=== PATIENT | female | born 1985 | race African-American/Black ===

== ENCOUNTER 2018-02-13 01:13 | Emergency (ER) | payer MEDICAID, OTHER ==
[2018-02-13] MEDS: DIPHTH/TET/ACEL PERTUSS (ADULT) 0.5 ML VIAL IM* (04:12)
== END 2018-02-13 04:15 | disposition home or self-care (01) ==
LOC: FTE 01:13
DX: S61.012A Laceration without foreign body of left thumb without damage to nail, initial encounter (principal); W29.0XXA Contact with powered kitchen appliance, initial encounter; Y92.009 Unspecified place in unspecified non-institutional (private) residence as the place of occurrence of the external cause; Z23 Encounter for immunization
CPT/HCPCS: 90471; 90715; 99283-25